=== PATIENT | female | born 1990 ===

== ENCOUNTER 2016-12-04 20:17 | Emergency (ER) | payer SELFPAY ==
[2016-12-04 20:53] VITALS: BP 126/76; PULSE 91; RESP 20; TEMP 98.5; O2SAT 99
--- NOTE | 2016-12-04 21:36 | ED PDOC ---
HPI: General Adult Time Seen by Provider: 12/04/16 21:00 Chief Complaint (Nursing): Abdominal Pain History Per: Patient Additional Complaint(s): Pt. states for the past 8 months she's been having intermittent R sided lower abdominal pain that became worse today. States she has not had her menstruation in 8 months. Prior to this she has always been irregular but would get her period at least ever 2-3 months. Denies dysuria, N/V/D, fever, vaginal discharge , vaginal spotting, back pain, previous abdominal surgeries. Past Medical History Reviewed: Historical Data, Nursing Documentation, Vital Signs Vital Signs: Last Vital Signs Temp 98.5 F 12/04/16 20:51 Pulse 91 H 12/04/16 20:51 Resp 20 12/04/16 20:51 BP 126/76 12/04/16 20:51 Pulse Ox 99 12/04/16 21:36 - Family History Family History: States: No Known Family Hx - Home Medications Home Medications: Ambulatory Orders Medication Instructions Recorded Naproxen [Naprosyn] 500 mg PO BID PRN #14 tab 12/04/16 - Allergies Allergies/Adverse Reactions: Allergies Allergy/AdvReac Type Severity Reaction Status Date / Time No Known Allergies Allergy Verified 12/04/16 20:51 Review of Systems ROS Statement: Except As Marked, All Systems Reviewed And Found Negative Gastrointestinal: Positive for: Abdominal Pain Genitourinary Female: Positive for: Pelvic Pain Physical Exam - Physical Exam Appears: Positive for: Well, Non-toxic, No Acute Distress Skin: Positive for: Normal Color, Warm. Negative for: Rash Gastrointestinal/Abdominal: Positive for: Normal Exam, Bowel Sounds, Soft. Negative for: Tenderness Back: Positive for: Normal Inspection. Negative for: L CVA Tenderness, R CVA Tenderness Extremity: Positive for: Normal ROM Neurologic/Psych: Positive for: Alert, Oriented - Laboratory Results Result Diagrams: 12/04/16 21:40 12/04/16 21:40 Urine POC: Negative Urine dip results: Positive for: Blood (small), Protein (trace). Negative for: Leukocyte Esterase, Nitrate, Ketones, Glucose, Bilirubin - ECG O2 Sat by Pulse Oximetry: 99 - Progress ED Course And Treament: Labs ordered. Re-evaluation Time: 22:10 (Abd and pelvis remain soft and non-tender to deep palpation. Pt. in no distress. Instructed to f[facility]. ) Condition: Re-examined Disposition - Clinical Impression Clinical Impression: Abdominal pain, Amenorrhea - Patient ED Disposition Is Patient to be Admitted: No - Disposition [facility]errals[facility]] [facility] [Outside] Disposition: Routine/Home Disposition Time: 22:11 Condition: STABLE Prescriptions: Naproxen [Naprosyn] 500 mg PO BID PRN #14 tab PRN Reason: Pain Instructions: Amenorrhea (GEN) Forms: [employer] (Hungarian) Print Language: [place]
[2016-12-04 22:03] LABS: BASO % 0.6 % (0.0-2.0); EOS # 0.2 K/uL (0.0-0.7); EOS % 2.6 % (0.0-4.0); HEMATOCRIT 37.9 % (34.0-47.0); LYMPH # 2.6 K/uL (1.0-4.3); LYMPH % 33.5 % (20.0-40.0); MEAN CELL VOLUME 89.3 fl (81.0-99.0); MEAN CORPUSCULAR HEMOGLOBIN 30.5 pg (27.0-31.0); MEAN CORPUSCULAR HGB CONC 34.2 g/dL (33.0-37.0); MEAN PLATELET VOLUME 11.3 fl (7.2-11.7); MONO # 0.5 K/uL (0.0-0.8); MONO % 6.8 % (0.0-10.0); NEUT # 4.4 K/uL (1.8-7.0); NEUT % 56.5 % (50.0-75.0); NRBC % 0.2 % (0.0-0.0); RED CELL DISTRIBUTION WIDTH 12.1 % (11.5-14.5); WHITE BLOOD COUNT 7.8 K/uL (4.8-10.8)
[2016-12-04 22:06] LABS: ALB/GLOB RATIO 1.4 (1.0-2.1); ALKALINE PHOSPHATASE 67 U/L (38-126); ALT/SGPT 47 U/L (9-52); AST/SGOT 21 U/L (14-36); BILIRUBIN,TOTAL 0.6 mg/dl (0.2-1.3); BLOOD UREA NITROGEN 12 mg/dl (7-17); CALCIUM 9.7 mg/dL (8.4-10.2); CARBON DIOXIDE 23 mmol/L (22-30); CHLORIDE 105 mmol/L (98-107); GFR AFRICAN-AMERICAN > 60; GLUCOSE,RANDOM 97 mg/dL (65-105); POTASSIUM 3.8 MMOL/L (3.6-5.0); SODIUM 141 mmol/l (132-148); TOTAL PROTEIN 7.9 G/DL (6.3-8.2)
== END 2016-12-04 22:25 | disposition home or self-care (01) ==
LOC: H.ER 20:17
DX: N91.2 Amenorrhea, unspecified (principal)